=== PATIENT | male | born 1990 | race Caucasian/White ===

== ENCOUNTER 2018-02-02 09:26 | Emergency (ER) | payer MEDICAID ==
[~2018-02-02] VITALS: Ht 177.8 cm; Wt 103.9 kg
[2018-02-02 09:29] VITALS: BP 140/87; Ht 177.8 cm; Wt 103.9 kg
== END 2018-02-02 11:31 | disposition home or self-care (01) ==
LOC: ED 09:26
DX: R10.13 Epigastric pain (principal); R11.2 Nausea with vomiting, unspecified; Z90.89 Acquired absence of other organs
CPT/HCPCS: J1885; Q0162